=== PATIENT | male | born 1965 | race Caucasian/White ===

== ENCOUNTER 2017-02-21 11:53 | Emergency (ER) | payer OTHER ==
[~2017-02-21] VITALS: Ht 170.2 cm; Wt 56.7 kg
[~2017-02-21 11:53] MED LIST: MOBIC15 MG PO; NAPROXEN500 MG PO; NORCO 5/3251 TABLET PO; PROAIR HFA8.5 GM IH
[2017-02-21] MEDS ORDERED: VIBRAMYCIN100 MG PO (12:58)
[2017-02-21 13:23] VITALS: BP 138/84
== END 2017-02-21 13:25 | disposition home or self-care (01) ==
LOC: EME 11:53
DX: L03.012 Cellulitis of left finger (principal); J44.9 Chronic obstructive pulmonary disease, unspecified; Z88.0 Allergy status to penicillin; F17.200 Nicotine dependence, unspecified, uncomplicated
CPT/HCPCS: 99281; 99284